=== PATIENT | female | born 1950 ===

== ENCOUNTER → 2019-07-01 | Outpatient (CLI) | payer MEDICARE | END | disposition home or self-care (01) | LOC: PLD 11:06 → LAB SHORT 11:06 | DX: D48.5 Neoplasm of uncertain behavior of skin (principal) | CPT/HCPCS: 88305 ==

== ENCOUNTER → 2019-09-05 | Outpatient (CLI) | payer MEDICARE | END | disposition home or self-care (01) | LOC: LAB SHORT 08:30 → PLD 08:30 | DX: D48.5 Neoplasm of uncertain behavior of skin (principal) | CPT/HCPCS: 88305 ==

== ENCOUNTER → 2021-10-04 | Outpatient (CLI) | payer MEDICARE | LOC: LAB SHORT 11:11 | DX: D48.5 Neoplasm of uncertain behavior of skin (principal); L82.1 Other seborrheic keratosis | CPT/HCPCS: 88305 ==